=== PATIENT | male | born 1960 | race Caucasian/White ===

== ENCOUNTER 2020-05-31 16:14 | Observation (INO) ==
[2020-05-31] MEDS ORDERED: *HR* FentaNYL (PF) 100 MCG/2 ML VIAL IVP ONE (16:42)
[2020-05-31 16:52] LABS: Basophils # 0.1 K/mcL (0.0-0.2); Basophils % 0.9 %; Hematocrit 37.7 % (37.5-50.1); Hemoglobin 12.5 g/dL (12.9-16.9); Lymphocytes # 0.8 K/mcL (0.6-4.6); Lymphocytes % 9.1 %; Mean Corpuscular HGB Conc 33.2 g/dL (31.6-35.5); Mean Corpuscular Hemoglobin 31.3 pg (28.0-33.3); Mean Corpuscular Volume 94.5 fL (83.0-100.0); Mean Platelet Volume 8.9 fL (9.4-12.4); Monocytes # 1.3 K/mcL (0.0-1.3); Monocytes % 14.2 %; Neutrophils # 6.6 K/mcL (1.6-8.9); Nucleated Red Blood Cells 0.2 /100 WBC (0); Platelet Count 257 K/mcL (140-400); Red Blood Count 3.99 M/mcL (4.19-5.50); Red Cell Distribution Width 18.6 % (11.5-14.5); Segmented Neutrophils % 72.8 %; White Blood Count 9.1 K/mcL (4.3-11.1)
[2020-05-31 17:12] LABS: Alanine Aminotransferase 15 Units/L (7-52); Albumin 4.3 g/dL (3.5-5.7); Albumin/Globulin Ratio 1.5 (1.1-2.2); Alkaline Phosphatase 106 Units/L (34-104); Aspartate Amino Transferase 14 Units/L (13-39); BUN/Creatinine Ratio 16 (6-26); Bilirubin,Total 0.9 mg/dL (0.3-1.0); Blood Urea Nitrogen 15 mg/dL (6-20); Calcium 9.6 mg/dL (8.6-10.3); Carbon Dioxide 26 mEq/L (23-29); Chloride 97 mEq/L (98-107); Globulin 2.8 g/dL (2.4-3.5); Glucose 114 mg/dL (70-105); Lipase 8 Units/L (11-82); Osmolality,Calculated 274 (280-300); Sodium 131 mEq/L (136-145); Total Protein 7.1 g/dL (6.4-8.9); Troponin I < 0.03 ng/mL (< 0.04); eGFR For African Americans > 60 (> 60); eGFR For Non-African Americans > 60 (> 60)
[2020-05-31 17:36] LABS: INR 1.2; Prothrombin Time 13.7 Seconds (9.4-12.1)
[2020-05-31 17:39] LABS: Activated Partial Thrombo Time 24.3 Seconds (26.0-36.0)
[2020-05-31] MEDS ORDERED: Ondansetron 4 MG/2 ML VIAL IVP PRN (17:46)
[2020-05-31] MEDS ORDERED: Naloxone 0.4 MG/ML INJ IVP PRN ×2 (17:46→17:48)
[2020-05-31] MEDS ORDERED: Acetaminophen 325 MG TABLET PO PRN (17:48)
[2020-05-31] MEDS ORDERED: Ipratropium/Albuterol Neb 3 ML IH PRN (17:49)
[2020-05-31] MEDS ORDERED: Perflutren Lipid Microsphere 1.3 ML in 0.9 % Sodium Chloride 8.7 ML IVP PRN (18:06)
[2020-05-31 18:26] LABS: Bilirubin,Urine Negative (Negative); Blood,Urine Negative (Negative); Clarity,Urine Clear (Clear); Color,Urine Colorless (Yellow); Glucose,Urine (UA) Normal (Normal); Ketones,Urine Negative (Negative); Leukocyte Esterase,Urine Negative (Negative); Nitrite,Urine Negative (Negative); Protein,Urine Negative (Neg-Trace); Specific Gravity,Urine > 1.030 (1.010-1.025); Urobilinogen,Urine Normal (Normal)
[2020-05-31] MEDS: *HR* Enoxaparin 100 MG/ML SYRINGE SQ SCH (19:22)
[2020-05-31] MEDS: *HR* OxyCODONE Immed Rel 5 MG TABLET PO PRN (20:39)
[2020-05-31] MEDS: Budesonide/Formoterol 160/4.5 1 PUFF INH IH SCH (20:44)
[2020-05-31] MEDS: *HR* HYDROcodone/Acet 5/325 mg TABLET PO PRN (22:13)
[2020-05-31] MEDS ORDERED: Melatonin 3 MG TABLET PO PRN (22:53)
[2020-06-01] MEDS: *HR* Enoxaparin 100 MG/ML SYRINGE SQ SCH (05:01)
[2020-06-01 06:09] LABS: Basophils # 0.1 K/mcL (0.0-0.2); Basophils % 1.8 %; Eosinophils % 0.5 %; Hematocrit 39.3 % (37.5-50.1); Hemoglobin 12.8 g/dL (12.9-16.9); Immature Granulocytes % 4.7 % (0-4); Lymphocytes # 0.9 K/mcL (0.6-4.6); Lymphocytes % 15.6 %; Mean Corpuscular HGB Conc 32.6 g/dL (31.6-35.5); Mean Corpuscular Hemoglobin 32.5 pg (28.0-33.3); Mean Corpuscular Volume 99.7 fL (83.0-100.0); Mean Platelet Volume 9.5 fL (9.4-12.4); Monocytes # 1.3 K/mcL (0.0-1.3); Monocytes % 22.4 %; Neutrophils # 3.3 K/mcL (1.6-8.9); Nucleated Red Blood Cells 0.3 /100 WBC (0); Platelet Count 219 K/mcL (140-400); Red Blood Count 3.94 M/mcL (4.19-5.50); Red Cell Distribution Width 18.6 % (11.5-14.5)
[2020-06-01 06:26] LABS: BUN/Creatinine Ratio 19 (6-26); Blood Urea Nitrogen 18 mg/dL (6-20); Calcium 9.3 mg/dL (8.6-10.3); Carbon Dioxide 25 mEq/L (23-29); Chloride 100 mEq/L (98-107); Glucose 92 mg/dL (70-105); Magnesium 2.2 mg/dL (1.6-2.6); Osmolality,Calculated 278 (280-300); Potassium 4.3 mEq/L (3.5-5.1); Sodium 133 mEq/L (136-145); eGFR For African Americans > 60 (> 60); eGFR For Non-African Americans > 60 (> 60)
[2020-06-01 06:46] LABS: Platelet Estimate Normal (Normal)
[2020-06-01] MEDS: Budesonide/Formoterol 160/4.5 1 PUFF INH IH SCH (07:54)
[2020-06-01] MEDS: *HR* OxyCODONE Immed Rel 5 MG TABLET PO PRN (08:05)
[2020-06-01 10:47] VITALS: BP 118/75
[2020-06-01] MEDS: *HR* HYDROcodone/Acet 5/325 mg TABLET PO PRN (11:38)
== END 2020-06-01 13:34 | disposition home or self-care (01) ==
LOC: EMEROOARM 16:14 → 3BNU 16:14 → SUATTDRO 18:22 → 3BNU 18:53
PROVIDERS: ADMIT Internal Medicine; ATTEND Internal Medicine

== ENCOUNTER 2020-11-12 08:12 | Inpatient (IN) ==
[2020-11-12] MEDS ORDERED: Ipratropium/Albuterol Neb 3 ML IH ONE (08:23)
[2020-11-12] MEDS ORDERED: 0.9 % Sodium Chloride 1,000 ML IVC ONE (08:23)
[2020-11-12] MEDS ORDERED: Isovue-370 500 ML BOTTLE IVP ONE (08:24)
[2020-11-12 08:35] LABS: Hematocrit 40.9 % (37.5-50.1); Hemoglobin 13.3 g/dL (12.9-16.9); Mean Corpuscular HGB Conc 32.5 g/dL (31.6-35.5); Mean Corpuscular Hemoglobin 28.9 pg (28.0-33.3); Mean Corpuscular Volume 88.9 fL (83.0-100.0); Mean Platelet Volume 9.5 fL (9.4-12.4); Nucleated Red Blood Cells 2.3 /100 WBC (0); Platelet Count 107 K/mcL (140-400); Red Cell Distribution Width 15.1 % (11.5-14.5); White Blood Count 10.2 K/mcL (4.3-11.1)
[2020-11-12] MEDS ORDERED: methylPREDNISolone 125 MG/2 ML VIAL IVP ONE (08:37)
[2020-11-12 08:53] LABS: BUN/Creatinine Ratio 12 (6-26); Blood Urea Nitrogen 10 mg/dL (6-20); Calcium 9.6 mg/dL (8.6-10.3); Carbon Dioxide 30 mEq/L (23-29); Chloride 97 mEq/L (98-107); Glucose 116 mg/dL (70-105); Osmolality,Calculated 280 (280-300); Potassium 3.7 mEq/L (3.5-5.1); Sodium 135 mEq/L (136-145); eGFR For African Americans > 60 (> 60); eGFR For Non-African Americans > 60 (> 60)
[2020-11-12 08:54] LABS: Troponin I < 0.03 ng/mL (< 0.04)
[2020-11-12 09:17] LABS: Influenza A PCR Negative (Negative); Influenza B PCR Negative (Negative); Resp. Syncytial Virus PCR Negative (Negative); SARS-CoV-2 by PCR (In House) Negative (Negative)
[2020-11-12 10:34] LABS: Basophils # 0.1 K/mcL (0.0-0.2); Eosinophils # 0.5 K/mcL (0.0-0.6); Lymphocytes # 1.7 K/mcL (0.6-4.6); Monocytes # 1.2 K/mcL (0.0-1.3); Neutrophils # 5.3 K/mcL (1.6-8.9); Reactive Lymphocytes Present (Not Present)
[2020-11-12 10:35] LABS: Platelet Estimate Decreased (Normal); Toxic Granulation Present (Not Present)
[2020-11-12] MEDS ORDERED: Piperacillin/Tazobactam 3.375 GM in 0.9 % Sodium Chloride Mini Bag 100 ML IVPB ONE ×2 (10:38→14:10)
[2020-11-12] MEDS ORDERED: *HR* FentaNYL (PF) 100 MCG/2 ML VIAL IVP ONE (14:44)
[2020-11-12] MEDS ORDERED: Ondansetron 4 MG/2 ML VIAL IVP ONE (14:44)
[2020-11-12] MEDS ORDERED: Ondansetron 4 MG/2 ML VIAL IVP PRN (15:00)
[2020-11-12] MEDS ORDERED: Naloxone 0.4 MG/ML INJ IVP PRN (15:00)
[2020-11-12] MEDS ORDERED: Albuterol 2.5 MG/3 ML NEBULIZER IH PRN (15:02)
[2020-11-12] MEDS ORDERED: Gadolinium Contrast Agent (WT Based) IV PRN (15:04)
[2020-11-12] MEDS ORDERED: GADOBUTROL 30 MMOL/30 ML VIAL IVP ONE (15:25)
[2020-11-12] MEDS: Albuterol 2.5 MG/3 ML NEBULIZER IH SCH ×3 (16:51→23:49)
[2020-11-12] MEDS: polyethylene glycoL 3350 17 GM POWD.PACK PO SCH (17:05)
[2020-11-12] MEDS: *HR* OxyCODONE Immed Rel 5 MG TABLET PO PRN ×2 (17:22→21:43)
[2020-11-12] MEDS: Azithromycin 500 MG in 0.9 % Sodium Chloride 250 ML IVPB SCH (17:24)
[2020-11-12] MEDS: Sennosides/Docusate Sodium TABLET PO SCH (20:23)
[2020-11-12] MEDS: MethylPREDNISolone 40 MG/ML VIAL IVP SCH (20:23)
[2020-11-12] MEDS: *HR* Enoxaparin 100 MG/ML SYRINGE SQ SCH (20:23)
[2020-11-12] MEDS ORDERED: Apixaban 5 MG TABLET PO SCH (21:00)
[2020-11-12] MEDS ORDERED: *HR* OxyCODONE/APAP 5/325 TABLET PO ONE (21:27)
[2020-11-12] MEDS: Piperacillin/Tazobactam 3.375 GM in 0.9 % Sodium Chloride Mini Bag 100 ML IVPB SCH (23:00)
[2020-11-13 00:51] LABS: Hemoglobin 12.5 g/dL (12.9-16.9); Mean Corpuscular Volume 88.2 fL (83.0-100.0)
[2020-11-13 00:53] LABS: Hematocrit 37.4 % (37.5-50.1); Immature Platelets 5.4 % (1.1-6.1); Mean Corpuscular HGB Conc 33.4 g/dL (31.6-35.5); Mean Corpuscular Hemoglobin 29.5 pg (28.0-33.3); Mean Platelet Volume 9.7 fL (9.4-12.4); Red Blood Count 4.24 M/mcL (4.19-5.50); Red Cell Distribution Width 15.3 % (11.5-14.5); White Blood Count 11.1 K/mcL (4.3-11.1)
[2020-11-13 01:13] LABS: BUN/Creatinine Ratio 14 (6-26); Blood Urea Nitrogen 11 mg/dL (6-20); Calcium 9.2 mg/dL (8.6-10.3); Carbon Dioxide 28 mEq/L (23-29); Chloride 98 mEq/L (98-107); Glucose 148 mg/dL (70-105); Osmolality,Calculated 278 (280-300); Sodium 133 mEq/L (136-145); eGFR For African Americans > 60 (> 60); eGFR For Non-African Americans > 60 (> 60)
[2020-11-13] MEDS: *HR* OxyCODONE Immed Rel 5 MG TABLET PO PRN ×6 (02:04→21:19)
[2020-11-13] MEDS: Albuterol 2.5 MG/3 ML NEBULIZER IH SCH ×5 (04:16→19:54)
[2020-11-13] MEDS: *HR* Enoxaparin 100 MG/ML SYRINGE SQ SCH ×2 (06:06→16:52)
[2020-11-13] MEDS: Piperacillin/Tazobactam 3.375 GM in 0.9 % Sodium Chloride Mini Bag 100 ML IVPB SCH ×2 (06:07→14:30)
[2020-11-13] MEDS: Budesonide/Formoterol 160/4.5 1 PUFF INH IH SCH ×2 (08:27→19:55)
[2020-11-13] MEDS: Sennosides/Docusate Sodium TABLET PO SCH ×2 (08:34→20:27)
[2020-11-13] MEDS: amLODIPine 5 MG TABLET PO SCH (08:35)
[2020-11-13] MEDS: polyethylene glycoL 3350 17 GM POWD.PACK PO SCH (08:35)
[2020-11-13] MEDS: MethylPREDNISolone 40 MG/ML VIAL IVP SCH ×2 (08:36→20:27)
[2020-11-13] MEDS: Gabapentin 100 MG CAPSULE PO SCH ×3 (08:36→20:26)
[2020-11-13] MEDS: Azithromycin 500 MG in 0.9 % Sodium Chloride 250 ML IVPB SCH (18:40)
[2020-11-13] MEDS: traZODone 50 MG TABLET PO PRN (22:30)
[2020-11-14] MEDS: Albuterol 2.5 MG/3 ML NEBULIZER IH SCH ×6 (00:23→20:57)
[2020-11-14] MEDS: Piperacillin/Tazobactam 3.375 GM in 0.9 % Sodium Chloride Mini Bag 100 ML IVPB SCH ×3 (01:06→15:31)
[2020-11-14 01:46] LABS: Eosinophils % 0.2 %
[2020-11-14 01:48] LABS: Basophils # 0.1 K/mcL (0.0-0.2); Basophils % 1.1 %; Hematocrit 36.9 % (37.5-50.1); Immature Platelets 4.6 % (1.1-6.1); Lymphocytes % 9.3 %; Mean Corpuscular HGB Conc 32.5 g/dL (31.6-35.5); Mean Corpuscular Hemoglobin 29.3 pg (28.0-33.3); Mean Platelet Volume 10.1 fL (9.4-12.4); Monocytes % 9.1 %; Neutrophils # 8.1 K/mcL (1.6-8.9); Nucleated Red Blood Cells 1.7 /100 WBC (0); Red Cell Distribution Width 15.4 % (11.5-14.5); Segmented Neutrophils % 73.3 %
[2020-11-14 01:53] LABS: Platelet Count 88 K/mcL (140-400)
[2020-11-14 02:04] LABS: BUN/Creatinine Ratio 16 (6-26); Blood Urea Nitrogen 12 mg/dL (6-20); Calcium 8.9 mg/dL (8.6-10.3); Carbon Dioxide 28 mEq/L (23-29); Chloride 100 mEq/L (98-107); Glucose 190 mg/dL (70-105); Osmolality,Calculated 287 (280-300); Potassium 3.9 mEq/L (3.5-5.1); Sodium 136 mEq/L (136-145); eGFR For African Americans > 60 (> 60); eGFR For Non-African Americans > 60 (> 60)
[2020-11-14] MEDS: *HR* OxyCODONE Immed Rel 5 MG TABLET PO PRN ×2 (03:48→07:51)
[2020-11-14] MEDS: *HR* Enoxaparin 100 MG/ML SYRINGE SQ SCH ×2 (05:16→18:08)
[2020-11-14] MEDS: Gabapentin 100 MG CAPSULE PO SCH ×3 (07:50→20:13)
[2020-11-14] MEDS: Sennosides/Docusate Sodium TABLET PO SCH ×2 (07:50→20:14)
[2020-11-14] MEDS: amLODIPine 5 MG TABLET PO SCH (07:50)
[2020-11-14] MEDS: Budesonide/Formoterol 160/4.5 1 PUFF INH IH SCH ×2 (07:51→20:57)
[2020-11-14] MEDS: polyethylene glycoL 3350 17 GM POWD.PACK PO SCH (07:51)
[2020-11-14] MEDS: MethylPREDNISolone 40 MG/ML VIAL IVP SCH ×2 (07:51→20:14)
[2020-11-14] MEDS: *HR* OxyCODONE Immed Rel 5 MG TABLET PO SCH ×3 (11:52→20:13)
[2020-11-14] MEDS ORDERED: Azithromycin 500 MG in 0.9 % Sodium Chloride 250 ML IVPB SCH (21:00)
[2020-11-15] MEDS: *HR* OxyCODONE Immed Rel 5 MG TABLET PO SCH ×4 (00:27→11:41)
[2020-11-15] MEDS: Piperacillin/Tazobactam 3.375 GM in 0.9 % Sodium Chloride Mini Bag 100 ML IVPB SCH ×4 (00:28→22:39)
[2020-11-15] MEDS: Albuterol 2.5 MG/3 ML NEBULIZER IH SCH ×7 (00:42→23:38)
[2020-11-15 04:19] LABS: Hematocrit 36.8 % (37.5-50.1); Hemoglobin 12.3 g/dL (12.9-16.9); Mean Corpuscular HGB Conc 33.4 g/dL (31.6-35.5); Mean Corpuscular Hemoglobin 29.7 pg (28.0-33.3); Mean Corpuscular Volume 88.9 fL (83.0-100.0); Mean Platelet Volume 10.2 fL (9.4-12.4); Red Blood Count 4.14 M/mcL (4.19-5.50); Red Cell Distribution Width 15.7 % (11.5-14.5); White Blood Count 12.3 K/mcL (4.3-11.1)
[2020-11-15 04:35] LABS: BUN/Creatinine Ratio 16 (6-26); Blood Urea Nitrogen 12 mg/dL (6-20); Calcium 8.9 mg/dL (8.6-10.3); Carbon Dioxide 31 mEq/L (23-29); Chloride 98 mEq/L (98-107); Glucose 151 mg/dL (70-105); Osmolality,Calculated 285 (280-300); Potassium 4.3 mEq/L (3.5-5.1); Sodium 136 mEq/L (136-145); eGFR For African Americans > 60 (> 60); eGFR For Non-African Americans > 60 (> 60)
[2020-11-15] MEDS: *HR* Enoxaparin 100 MG/ML SYRINGE SQ SCH (05:53)
[2020-11-15] MEDS: Budesonide/Formoterol 160/4.5 1 PUFF INH IH SCH ×2 (07:51→20:21)
[2020-11-15] MEDS: polyethylene glycoL 3350 17 GM POWD.PACK PO SCH (08:17)
[2020-11-15] MEDS: MethylPREDNISolone 40 MG/ML VIAL IVP SCH (08:18)
[2020-11-15] MEDS: amLODIPine 5 MG TABLET PO SCH (08:18)
[2020-11-15] MEDS: Gabapentin 100 MG CAPSULE PO SCH ×3 (08:18→20:08)
[2020-11-15] MEDS: Sennosides/Docusate Sodium TABLET PO SCH (08:19)
[2020-11-15] MEDS ORDERED: Isovue-370 500 ML BOTTLE IVP ONE (08:53)
[2020-11-15] MEDS ORDERED: *HR* HYDROmorphone (PF) 1 MG/ML SYRINGE IVP ONE (08:53)
[2020-11-15 10:09] LABS: Alanine Aminotransferase 187 Units/L (7-52); Albumin 3.5 g/dL (3.5-5.7); Albumin/Globulin Ratio 1.3 (1.1-2.2); Alkaline Phosphatase 284 Units/L (34-104); Aspartate Amino Transferase 189 Units/L (13-39); Bilirubin,Direct 1.1 mg/dL (0.0-0.2); Bilirubin,Indirect 0.8 mg/dL (0.0-1.0); Bilirubin,Total 1.9 mg/dL (0.3-1.0); Globulin 2.6 g/dL (2.4-3.5); Lipase 37 Units/L (11-82); Total Protein 6.1 g/dL (6.4-8.9)
[2020-11-15] MEDS ORDERED: *HR* HYDROmorphone (PF) 1 MG/ML SYRINGE IVP PRN ×2 (13:38→13:51)
[2020-11-15] MEDS ORDERED: Methylnaltrexone 12 MG/0.6 ML SYRINGE SQ ONE (13:56)
[2020-11-15] MEDS: tiZANidine 4 MG TABLET PO PRN (14:13)
[2020-11-15] MEDS: *HR* HYDROmorphone (PF) 1 MG/ML SYRINGE IVP SCH ×2 (14:27→20:08)
[2020-11-15] MEDS: Pantoprazole 40 MG VIAL IVP SCH (16:54)
[2020-11-15 17:07] LABS: Hepatitis B Surface Antigen Nonreactive (Nonreactive)
[2020-11-15 17:37] LABS: Hepatitis B Core IgM Nonreactive (Nonreactive); Hepatitis C Virus Antibody Nonreactive (Nonreactive)
[2020-11-15 17:39] LABS: Hepatitis A Antibody IgM Nonreactive (Nonreactive)
[2020-11-15] MEDS: traZODone 50 MG TABLET PO PRN (23:08)
[2020-11-16] MEDS: *HR* HYDROmorphone (PF) 1 MG/ML SYRINGE IVP SCH ×4 (02:05→21:00)
[2020-11-16] MEDS: Albuterol 2.5 MG/3 ML NEBULIZER IH SCH ×6 (03:45→23:16)
[2020-11-16 04:21] LABS: Basophils % 0.1 %; Eosinophils # 0.1 K/mcL (0.0-0.6); Eosinophils % 0.6 %; Hematocrit 36.6 % (37.5-50.1); Immature Granulocytes % 9.5 % (0-4); Immature Platelets 6.1 % (1.1-6.1); Lymphocytes # 1.6 K/mcL (0.6-4.6); Lymphocytes % 15.5 %; Mean Corpuscular HGB Conc 32.8 g/dL (31.6-35.5); Mean Corpuscular Hemoglobin 29.4 pg (28.0-33.3); Mean Corpuscular Volume 89.7 fL (83.0-100.0); Mean Platelet Volume 10.6 fL (9.4-12.4); Neutrophils # 6.7 K/mcL (1.6-8.9); Nucleated Red Blood Cells 4.3 /100 WBC (0); Red Blood Count 4.08 M/mcL (4.19-5.50); Segmented Neutrophils % 64.3 %; White Blood Count 10.4 K/mcL (4.3-11.1)
[2020-11-16 04:27] LABS: INR 1.3
[2020-11-16 04:39] LABS: Platelet Count 81 K/mcL (140-400)
[2020-11-16 04:43] LABS: Alanine Aminotransferase 194 Units/L (7-52); Albumin 3.2 g/dL (3.5-5.7); Albumin/Globulin Ratio 1.3 (1.1-2.2); Alkaline Phosphatase 298 Units/L (34-104); Aspartate Amino Transferase 215 Units/L (13-39); BUN/Creatinine Ratio 18 (6-26); Bilirubin,Direct 1.7 mg/dL (0.0-0.2); Bilirubin,Indirect 0.9 mg/dL (0.0-1.0); Bilirubin,Total 2.6 mg/dL (0.3-1.0); Blood Urea Nitrogen 15 mg/dL (6-20); Calcium 8.7 mg/dL (8.6-10.3); Carbon Dioxide 32 mEq/L (23-29); Chloride 98 mEq/L (98-107); Globulin 2.5 g/dL (2.4-3.5); Glucose 93 mg/dL (70-105); Osmolality,Calculated 281 (280-300); Sodium 135 mEq/L (136-145); Total Protein 5.7 g/dL (6.4-8.9); eGFR For African Americans > 60 (> 60); eGFR For Non-African Americans > 60 (> 60)
[2020-11-16 05:09] LABS: Platelet Estimate Decreased (Normal)
[2020-11-16] MEDS: Pantoprazole 40 MG VIAL IVP SCH ×2 (05:37→18:41)
[2020-11-16] MEDS: tiZANidine 4 MG TABLET PO PRN ×2 (05:38→21:10)
[2020-11-16] MEDS: Piperacillin/Tazobactam 3.375 GM in 0.9 % Sodium Chloride Mini Bag 100 ML IVPB SCH ×2 (08:23→16:04)
[2020-11-16] MEDS: amLODIPine 5 MG TABLET PO SCH (08:27)
[2020-11-16] MEDS: Gabapentin 100 MG CAPSULE PO SCH ×3 (08:27→21:05)
[2020-11-16] MEDS: polyethylene glycoL 3350 17 GM POWD.PACK PO SCH (08:27)
[2020-11-16] MEDS ORDERED: MethylPREDNISolone 40 MG/ML VIAL IVP SCH (09:00)
[2020-11-16] MEDS: Budesonide/Formoterol 160/4.5 1 PUFF INH IH SCH ×2 (10:47→20:09)
[2020-11-16] MEDS ORDERED: Lidocaine -MPF 2% 5 ML VIAL ONE (13:17)
[2020-11-16] MEDS ORDERED: *HR* FentaNYL (PF) 100 MCG/2 ML VIAL ONE (13:17)
[2020-11-16] MEDS ORDERED: Ondansetron 4 MG/2 ML VIAL ONE (13:18)
[2020-11-16] MEDS ORDERED: Lidocaine HCL 4 ML Topical Solution (Laryng-O-Jet Kit Sterile Pak) TP ONE (13:22)
[2020-11-16] MEDS ORDERED: Ondansetron 4 MG/2 ML VIAL IVP PRN (14:07)
[2020-11-16 14:11] LABS: Source of Body Fluid bal rt.upper lobe
[2020-11-16] MEDS: MethylPREDNISolone 40 MG/ML VIAL IVP SCH ×2 (16:03→21:06)
[2020-11-16 16:56] LABS: Appearance of Body Fluid Slightly Hazy (Clear); Volume of Body Fluid 18 mL
[2020-11-16] MEDS: Apixaban 5 MG TABLET PO SCH (21:05)
[2020-11-17] MEDS: Piperacillin/Tazobactam 3.375 GM in 0.9 % Sodium Chloride Mini Bag 100 ML IVPB SCH ×2 (00:29→07:41)
[2020-11-17] MEDS: MethylPREDNISolone 40 MG/ML VIAL IVP SCH ×3 (00:30→23:08)
[2020-11-17] MEDS: *HR* HYDROmorphone (PF) 1 MG/ML SYRINGE IVP SCH ×3 (03:12→13:28)
[2020-11-17] MEDS: Albuterol 2.5 MG/3 ML NEBULIZER IH SCH ×3 (03:46→11:14)
[2020-11-17] MEDS: Pantoprazole 40 MG VIAL IVP SCH (05:41)
[2020-11-17] MEDS: Budesonide/Formoterol 160/4.5 1 PUFF INH IH SCH ×2 (07:31→20:27)
[2020-11-17] MEDS: Apixaban 5 MG TABLET PO SCH ×2 (07:41→19:41)
[2020-11-17] MEDS: amLODIPine 5 MG TABLET PO SCH (07:41)
[2020-11-17] MEDS: Gabapentin 100 MG CAPSULE PO SCH ×3 (07:42→19:42)
[2020-11-17] MEDS: polyethylene glycoL 3350 17 GM POWD.PACK PO SCH (07:45)
[2020-11-17 07:51] LABS: Hematocrit 36.3 % (37.5-50.1); Hemoglobin 11.7 g/dL (12.9-16.9); Mean Corpuscular HGB Conc 32.2 g/dL (31.6-35.5); Mean Corpuscular Hemoglobin 28.9 pg (28.0-33.3); Mean Corpuscular Volume 89.6 fL (83.0-100.0); Mean Platelet Volume 11.3 fL (9.4-12.4); Red Blood Count 4.05 M/mcL (4.19-5.50); Red Cell Distribution Width 16.2 % (11.5-14.5); White Blood Count 9.6 K/mcL (4.3-11.1)
[2020-11-17 08:12] LABS: Alanine Aminotransferase 228 Units/L (7-52); Albumin 3.3 g/dL (3.5-5.7); Albumin/Globulin Ratio 1.4 (1.1-2.2); Alkaline Phosphatase 371 Units/L (34-104); Aspartate Amino Transferase 264 Units/L (13-39); BUN/Creatinine Ratio 21 (6-26); Bilirubin,Direct 1.9 mg/dL (0.0-0.2); Bilirubin,Indirect 1.2 mg/dL (0.0-1.0); Bilirubin,Total 3.1 mg/dL (0.3-1.0); Blood Urea Nitrogen 18 mg/dL (6-20); Calcium 8.8 mg/dL (8.6-10.3); Carbon Dioxide 28 mEq/L (23-29); Chloride 98 mEq/L (98-107); Globulin 2.4 g/dL (2.4-3.5); Glucose 192 mg/dL (70-105); Osmolality,Calculated 283 (280-300); Potassium 4.6 mEq/L (3.5-5.1); Sodium 133 mEq/L (136-145); Total Protein 5.7 g/dL (6.4-8.9); eGFR For African Americans > 60 (> 60); eGFR For Non-African Americans > 60 (> 60)
[2020-11-17] MEDS ORDERED: *HR* HYDROmorphone 2 MG TABLET PO PRN (13:43)
[2020-11-17] MEDS ORDERED: Ipratropium/Albuterol Neb 3 ML IH PRN (13:43)
[2020-11-17] MEDS ORDERED: predniSONE 20 MG TABLET PO SCH ×2 (13:45→21:00)
[2020-11-17] MEDS ORDERED: levoFLOXacin 750 MG/150 ML 750 MG/150 ML BAG IVPB SCH (14:15)
[2020-11-17] MEDS: *HR* HYDROmorphone 2 MG TABLET PO PRN (20:47)
[2020-11-18] MEDS: *HR* HYDROmorphone 2 MG TABLET PO PRN ×5 (02:50→21:16)
[2020-11-18 04:31] LABS: Mean Corpuscular Volume 89.5 fL (83.0-100.0); White Blood Count 13.4 K/mcL (4.3-11.1)
[2020-11-18 04:32] LABS: Hematocrit 36.6 % (37.5-50.1); Hemoglobin 11.8 g/dL (12.9-16.9); Immature Platelets 6.4 % (1.1-6.1); Mean Corpuscular HGB Conc 32.2 g/dL (31.6-35.5); Mean Corpuscular Hemoglobin 28.9 pg (28.0-33.3); Mean Platelet Volume 10.1 fL (9.4-12.4); Nucleated Red Blood Cells 3.1 /100 WBC (0); Red Blood Count 4.09 M/mcL (4.19-5.50); Red Cell Distribution Width 16.7 % (11.5-14.5)
[2020-11-18 04:45] LABS: Platelet Count 82 K/mcL (140-400)
[2020-11-18 05:08] LABS: Alanine Aminotransferase 245 Units/L (7-52); Albumin 3.2 g/dL (3.5-5.7); Albumin/Globulin Ratio 1.3 (1.1-2.2); Alkaline Phosphatase 364 Units/L (34-104); Aspartate Amino Transferase 298 Units/L (13-39); BUN/Creatinine Ratio 25 (6-26); Bilirubin,Direct 2.9 mg/dL (0.0-0.2); Bilirubin,Indirect 1.6 mg/dL (0.0-1.0); Bilirubin,Total 4.5 mg/dL (0.3-1.0); Blood Urea Nitrogen 20 mg/dL (6-20); Calcium 8.7 mg/dL (8.6-10.3); Carbon Dioxide 29 mEq/L (23-29); Chloride 99 mEq/L (98-107); Globulin 2.5 g/dL (2.4-3.5); Glucose 151 mg/dL (70-105); Magnesium 2.3 mg/dL (1.6-2.6); Osmolality,Calculated 286 (280-300); Potassium 4.4 mEq/L (3.5-5.1); Sodium 135 mEq/L (136-145); Total Protein 5.7 g/dL (6.4-8.9); eGFR For African Americans > 60 (> 60); eGFR For Non-African Americans > 60 (> 60)
[2020-11-18 05:29] LABS: Lymphocytes # 1.3 K/mcL (0.6-4.6); Monocytes # 1.3 K/mcL (0.0-1.3); Neutrophils # 10.7 K/mcL (1.6-8.9); Platelet Estimate Decreased (Normal)
[2020-11-18] MEDS: Budesonide/Formoterol 160/4.5 1 PUFF INH IH SCH ×2 (07:27→20:48)
[2020-11-18] MEDS: Gabapentin 100 MG CAPSULE PO SCH ×3 (08:29→21:16)
[2020-11-18] MEDS: MethylPREDNISolone 40 MG/ML VIAL IVP SCH ×2 (08:29→16:56)
[2020-11-18] MEDS: polyethylene glycoL 3350 17 GM POWD.PACK PO SCH (08:29)
[2020-11-18] MEDS: Apixaban 5 MG TABLET PO SCH ×2 (08:29→21:16)
[2020-11-18] MEDS: amLODIPine 5 MG TABLET PO SCH (08:29)
[2020-11-18 11:08] LABS: F-Actin (sm muscle) Ab IgG 10 Units (0-19)
[2020-11-18 11:12] LABS: ANA IgG by ELISA NONE DETECTED (None Detected)
[2020-11-18] MEDS: levoFLOXacin 750 MG TABLET PO SCH (12:54)
[2020-11-19] MEDS: MethylPREDNISolone 40 MG/ML VIAL IVP SCH ×2 (00:16→09:40)
[2020-11-19 01:42] LABS: Hemoglobin 12.7 g/dL (12.9-16.9); Immature Platelets 5.6 % (1.1-6.1); Mean Corpuscular HGB Conc 32.6 g/dL (31.6-35.5); Mean Corpuscular Hemoglobin 29.5 pg (28.0-33.3); Mean Corpuscular Volume 90.5 fL (83.0-100.0); Nucleated Red Blood Cells 5.4 /100 WBC (0); Platelet Count 89 K/mcL (140-400); Red Blood Count 4.31 M/mcL (4.19-5.50); Red Cell Distribution Width 17.2 % (11.5-14.5); White Blood Count 13.6 K/mcL (4.3-11.1)
[2020-11-19 01:57] LABS: Alanine Aminotransferase 275 Units/L (7-52); Albumin 3.3 g/dL (3.5-5.7); Albumin/Globulin Ratio 1.3 (1.1-2.2); Alkaline Phosphatase 467 Units/L (34-104); Aspartate Amino Transferase 402 Units/L (13-39); BUN/Creatinine Ratio 25 (6-26); Bilirubin,Direct 4.1 mg/dL (0.0-0.2); Bilirubin,Indirect 2.1 mg/dL (0.0-1.0); Bilirubin,Total 6.2 mg/dL (0.3-1.0); Blood Urea Nitrogen 23 mg/dL (6-20); Carbon Dioxide 29 mEq/L (23-29); Chloride 100 mEq/L (98-107); Globulin 2.5 g/dL (2.4-3.5); Glucose 129 mg/dL (70-105); Magnesium 2.3 mg/dL (1.6-2.6); Osmolality,Calculated 287 (280-300); Potassium 5.1 mEq/L (3.5-5.1); Sodium 136 mEq/L (136-145); Total Protein 5.8 g/dL (6.4-8.9); eGFR For African Americans > 60 (> 60); eGFR For Non-African Americans > 60 (> 60)
[2020-11-19 02:00] LABS: Anisocytosis 1+ (Not Present); Eosinophils # 0.3 K/mcL (0.0-0.6); Lymphocytes # 1.4 K/mcL (0.6-4.6); Monocytes # 0.3 K/mcL (0.0-1.3); Neutrophils # 10.1 K/mcL (1.6-8.9); Platelet Estimate Decreased (Normal); Polychromasia 1+ (Not Present)
[2020-11-19] MEDS: *HR* HYDROmorphone 2 MG TABLET PO PRN ×3 (04:36→13:25)
[2020-11-19 06:55] VITALS: BP 154/94; PULSE 77; TEMP 98.3; O2SAT 90
[2020-11-19] MEDS: Budesonide/Formoterol 160/4.5 1 PUFF INH IH SCH (08:12)
[2020-11-19] MEDS: Gabapentin 100 MG CAPSULE PO SCH (09:38)
[2020-11-19] MEDS: polyethylene glycoL 3350 17 GM POWD.PACK PO SCH (09:39)
[2020-11-19] MEDS: levoFLOXacin 750 MG TABLET PO SCH (09:40)
[2020-11-19] MEDS: Apixaban 5 MG TABLET PO SCH (09:40)
[2020-11-19] MEDS: amLODIPine 5 MG TABLET PO SCH (09:40)
[2020-11-19] MEDS: tiZANidine 4 MG TABLET PO PRN (10:02)
== END 2020-11-19 15:03 | disposition home or self-care (01) | DRG 542 ==
LOC: EMEROOARM 08:12 → 3ANU 08:12 → SUATTDRO 11-13 11:07
PROVIDERS: ADMIT Pharmacist; ATTEND Pharmacist